=== PATIENT | female | born 1975 | race American Indian/Alaskan Native ===

== ENCOUNTER 2018-04-16 22:16 | Observation (INO) | payer BC ==
[~2018-04-16] VITALS: Ht 152.4 cm; Wt 100.0 kg
[~2018-04-16 22:16] MED LIST: ACET-3068 PO; COL100C PO; HYDR1TAB PO; MECL12.5 PO; NAP220T PO; ONDA8TAB9 PO; SERT25TA PO
[2018-04-16] MEDS ORDERED: mag hydrox/Alum hydrox/simeth 30ml oral suspension PO ONE (23:40)
[2018-04-16] MEDS ORDERED: nitroGLYCERIN 0.2mg/hour patch TD ONE (23:40)
[2018-04-16] MEDS ORDERED: LIDOcaine Viscous 15ml cup PO ONE (23:40)
[2018-04-16 23:50] LABS: BASOPHILS % (AUTO) 0.5 % (0-1); EOSINOPHILS # (AUTO) 0.2 X10'3 (0-0.9); EOSINOPHILS % (AUTO) 2.4 % (0-6); HEMATOCRIT 38.7 % (35.0-45.0); HEMOGLOBIN 13.4 g/dl (12.0-16.0); LYMPHOCYTES # (AUTO) 3.1 X10'3 (1.1-4.8); LYMPHOCYTES % (AUTO) 31.3 % (21-51); MEAN CORPUSCULAR HEMOGLOBIN 29.2 PG (27.0-31.0); MEAN CORPUSCULAR HGB CONC 34.6 % (33.0-36.5); MEAN CORPUSCULAR VOLUME 84.4 FL (78-98); MEAN PLATELET VOLUME 7.9 FL (7.4-10.4); MONOCYTES # (AUTO) 0.6 X10'3 (0-0.9); MONOCYTES % (AUTO) 6.4 % (2-12); NEUTROPHILS # (AUTO) 5.9 X10'3 (1.8-7.7); NEUTROPHILS % (AUTO) 59.4 % (42-75); PLATELET COUNT 290 X10'3 (140-440); RED BLOOD COUNT 4.58 X10'6 (4.20-5.60); RED CELL DISTRIBUTION WIDTH 14.3 % (11.5-14.5); WHITE BLOOD COUNT 9.9 X10'3 (4.5-11.0)
[2018-04-16 23:53] LABS: INR 0.9 INR; PARTIAL THROMBOPLASTIN TIME 25 SECONDS (22-32); PROTHROMBIN TIME 9.5 SECONDS (9.0-12.0)
[2018-04-16 23:55] LABS: CLARITY,URINE CLEAR (Clear); COLOR,URINE YELLOW (Yellow); GLUCOSE, URINE NEGATIVE (Neg); KETONES,URINE NEGATIVE (Neg); LEUKOCYTE ESTERASE ,URINE SMALL (Neg); NITRITES, URINE NEGATIVE (Neg); OCCULT BLOOD,URINE SMALL (Neg); PROTEIN,URINE NEGATIVE (Neg); UROBILINOGEN,URINE 0.2 E.U/dL (0.2-1.0)
[2018-04-16 23:57] LABS: ALANINE AMINOTRANSFERASE 69 U/L (12-78); ALBUMIN 3.5 G/DL (3.4-5.0); ALBUMIN/GLOBULIN RATIO 1.1 (1.1-1.5); ALKALINE PHOSPHATASE 101 IU/L (46-116); ANION GAP 9 (8-16); ASPARTATE AMINO TRANSFERASE 23 U/L (10-37); BILIRUBIN,TOTAL 0.4 MG/DL (0.1-1.0); BLOOD UREA NITROGEN 14 MG/DL (7-18); BUN/CREATININE RATIO 12.2 (6.6-38.0); CHLORIDE 107 MMOL/L (99-107); CREATININE 1.15 MG/DL (0.40-0.90); GLUCOSE 138 MG/DL (70-104); MAGNESIUM 1.9 MG/DL (1.5-2.4); POTASSIUM 3.3 MMOL/L (3.5-5.1); SODIUM 145 MMOL/L (135-145); TOTAL CARBON DIOXIDE 28.8 MMOL/L (24-32); TOTAL PROTEIN 6.8 G/DL (6.4-8.2); eGFR 51 ML/MIN
[2018-04-16 23:58] LABS: UA COLLECTION TYPE CLN CATCH MIDSTREAM
[2018-04-17] VITALS (11 sets, daily range): BP systolic 118–142; BP diastolic 70–88
[2018-04-17 00:02] LABS: BACTERIA,URINE 1+ /HPF (Neg); MUCUS STRANDS MODERATE /LPF (Neg); SQUAMOUS EPITHELIAL CELL,UR MANY /LPF (FEW)
[2018-04-17] MEDS ORDERED: magnesium oxide 400mg tablet PO ONE (00:05)
[2018-04-17] MEDS ORDERED: potassium Cl 20 mEq SR tablet PO ONE (00:05)
[2018-04-17] MEDS ORDERED: aspirin 81mg tab.chew PO ONE (00:05)
[2018-04-17] MEDS ORDERED: LOSA25TA96 PO (00:26)
[2018-04-17] MEDS ORDERED: MELO-102 PO (00:26)
[2018-04-17] MEDS ORDERED: VALA500T37 PO (00:26)
[2018-04-17] MEDS ORDERED: METF500T PO (00:26)
[2018-04-17] MEDS ORDERED: HYDR-3965 PO (00:26)
[2018-04-17] MEDS ORDERED: mag hydrox/Alum hydrox/simeth 30ml oral suspension PO PRN (01:00)
[2018-04-17] MEDS ORDERED: acetaminophen 325mg tablet PO PRN (01:00)
[2018-04-17] MEDS ORDERED: potassium Cl 20 mEq SR tablet PO PRN ×2 (01:00)
[2018-04-17] MEDS ORDERED: ondansetron/PF 4mg/2ml inj IV PRN (01:00)
[2018-04-17] MEDS ORDERED: potassium Cl 40MEQ/NS 500ml 500 ML IV PRN ×2 (01:00)
[2018-04-17] MEDS ORDERED: dextrose 50%-water 50ml dispensing syringe IV PRN ×2 (01:05)
[2018-04-17] MEDS ORDERED: dextrose ORAL solution 15 GM/59 ML bottle PO PRN ×2 (01:05)
[2018-04-17] MEDS ORDERED: glucagon, human recombinant 1mg kit SUBCUT PRN (01:05)
[2018-04-17] MEDS ORDERED: insulin Lispro (HumaLOG) vial - multi-dose SQ SCH (01:05)
[2018-04-17] MEDS ORDERED: HYDROcodone/acetaminophen 5mg/325mg tablet PO PRN (01:05)
[2018-04-17] MEDS ORDERED: MESSAGE TO PHARMACY PO ONE (01:05)
[2018-04-17] MEDS ORDERED: LORazepam 1 MG tablet PO ONE (01:10)
[2018-04-17 02:15] LABS: HEMOGLOBIN A1C 6.8 % (4.5-6.2)
[2018-04-17] MEDS ORDERED: CAFFEINE CITRATE 60 MG/3 ML injection vial IV PRN (07:00)
[2018-04-17] MEDS ORDERED: regadenoson 0.4mg/5ml syringe IV ONE ×2 (07:00→09:07)
[2018-04-17] MEDS ORDERED: metoprolol tartrate 1mg/ml inj IV PRN (07:00)
[2018-04-17] MEDS ORDERED: nitroGLYCERIN 0.4mg SUBLingual tab SL PRN (07:00)
[2018-04-17] MEDS: acyclovir 200 MG capsule PO SCH ×3 (07:50→15:19)
[2018-04-17] MEDS ORDERED: K and/or MAG REPLACEMENT MC SCH (08:00)
[2018-04-17] MEDS ORDERED: heparin, porcine 5000 units/ml vial SQ SCH (08:00)
[2018-04-17] MEDS ORDERED: CAFFEINE CITRATE 60 MG/3 ML injection vial IV ONE (09:07)
[2018-04-17] MEDS ORDERED: losartan 25mg tablet PO SCH (21:00)
[2018-04-17] MEDS ORDERED: sertraline 50mg tablet PO SCH (21:00)
== END 2018-04-17 15:40 | disposition home or self-care (01) ==
LOC: ER 22:17 → ED HOLD 04-17 01:00 → PCU 3S 04-17 02:18
PROVIDERS: ADMIT Internal Medicine; ATTEND Internal Medicine
DX: I20.9 Angina pectoris, unspecified (principal); E11.65 Type 2 diabetes mellitus with hyperglycemia; F17.200 Nicotine dependence, unspecified, uncomplicated; F32.9 Major depressive disorder, single episode, unspecified; G47.30 Sleep apnea, unspecified; E66.01 Morbid (severe) obesity due to excess calories; I10 Essential (primary) hypertension; J45.909 Unspecified asthma, uncomplicated; K21.9 Gastro-esophageal reflux disease without esophagitis; M79.7 Fibromyalgia; G89.4 Chronic pain syndrome; Z79.84 Long term (current) use of oral hypoglycemic drugs; Z79.899 Other long term (current) drug therapy; Z82.49 Family history of ischemic heart disease and other diseases of the circulatory system; Z90.49 Acquired absence of other specified parts of digestive tract; Z90.710 Acquired absence of both cervix and uterus
CPT/HCPCS: 36415; 71045; 78452; 80053; 81001; 82948; 83036; 83735; 84484; 85025; 85610; 85730; 87070; 93005; 93017; 93306; 96372; 96374; 96375; 99285; A9500; G0378; J1644; J2405